=== PATIENT | female | born 1950 | race Caucasian/White ===

== ENCOUNTER 2017-03-16 07:48 | Day surgery (SDC) | payer MEDICARE, MEDICAID ==
[~2017-03-16] VITALS: Ht 154.9 cm; Wt 87.6 kg
[~2017-03-16 07:48] MED LIST: ATOR80TA PO; BENA40TA2 PO; BUPIVACAINE/PF 0.5% ONE; CARB100T4 PO; DICL1ADH15 TD; GABA600T PO; HYDR-3245 PO; HYDR25TA6 PO; LEVO25TA4 PO; LIDO700A5 TD; OXYC-302 PO; PANT40TA5 PO; PRAM0.5T5 PO; SERT100T5 PO; TIZA4TAB PO; TRAM50TA2 PO
[2017-03-16] MEDS ORDERED: LACTATED RINGERS 1,000 ML IV SCH (08:32)
[2017-03-16] MEDS ORDERED: MIDAZOLAM 1 MG/ML, 2ML ONE (08:53)
[2017-03-16] MEDS ORDERED: FENTANYL PF 100 MCG/2ML ONE ×2 (08:53→10:02)
[2017-03-16] MEDS ORDERED: EPINEPHRINE 1 MG/ML, 1ML ONE (09:07)
[2017-03-16] MEDS ORDERED: BUPIVACAINE/PF 0.5% ONE (09:07)
[2017-03-16] MEDS ORDERED: LIDOCAINE/PF 1%, 30ML ONE (09:07)
[2017-03-16 09:10] VITALS: BP 130/80
[2017-03-16] MEDS ORDERED: PRAM0.5T PO (09:21)
[2017-03-16] MEDS ORDERED: RIVA20TA PO (09:21)
[2017-03-16] MEDS ORDERED: ROSU40TA PO (09:21)
[2017-03-16] MEDS ORDERED: DEXAMETHASONE 4 MG/ML, 5ML ONE (09:23)
[2017-03-16] MEDS ORDERED: hydrALAzine 20 MG/ML, 1ML ONE (09:23)
[2017-03-16] MEDS ORDERED: CEFAZOLIN 1,000 MG ONE (09:23)
[2017-03-16] MEDS ORDERED: ONDANSETRON 2MG/ML, 2ML ONE (09:23)
[2017-03-16] MEDS ORDERED: SUCCINYLCHOLINE 20 MG/ML, 10ML ONE (09:23)
[2017-03-16] MEDS ORDERED: EPHEDRINE 50 MG/ML, 1ML ONE (09:23)
[2017-03-16] MEDS ORDERED: PROPOFOL 10 MG/ML, 20ML ONE (09:23)
[2017-03-16] MEDS ORDERED: HYDROcodone/APAP 10/325 MG TABLET PO PRN (09:30)
[2017-03-16] MEDS ORDERED: OXYcodone 5 MG/5 ML ORAL.SOL UDC PO PRN (10:30)
[2017-03-16] MEDS ORDERED: ACETAMINOPHEN 325 MG TABLET PO PRN (10:30)
[2017-03-16] MEDS ORDERED: MEPERIDINE/PF 25MG/0.5ML IVPush PRN (10:30)
[2017-03-16] MEDS ORDERED: ONDANSETRON 2MG/ML, 2ML IVPush PRN (10:30)
[2017-03-16] MEDS ORDERED: LABETALOL 5MG/ML, 20ML IV PRN (10:30)
[2017-03-16] MEDS ORDERED: hydrALAzine 20 MG/ML, 1ML IV PRN (10:30)
[2017-03-16] MEDS ORDERED: HYDROmorphone 1 MG/ML, 1ML IV PRN (10:30)
[2017-03-16] MEDS ORDERED: ALBUTEROL/IPRATROPIUM 2.5MG/0.5MG, 3 ML NPPB PRN (10:30)
[2017-03-16] MEDS ORDERED: METOCLOPRAMIDE 5 MG/ML, 2ML IV PRN (10:30)
[2017-03-16] MEDS ORDERED: MIDAZOLAM 1 MG/ML, 2ML IV PRN (10:30)
[2017-03-16] MEDS ORDERED: FENTANYL PF 100 MCG/2ML IV PRN (10:30)
[2017-03-16] MEDS ORDERED: PROMETHAZINE 25 MG/ML, 1ML IV PRN (10:30)
[2017-03-16] MEDS ORDERED: OXYcodone 5 MG/5 ML ORAL.SOL UDC ONE (11:32)
[2017-03-16] MEDS ORDERED: ACETAMINOPHEN 650 MG/20.3 ML UDC ONE (11:32)
[2017-03-16] MEDS ORDERED: CARBAMAZEPINE 100 MG TAB.CHEW PO SCH (16:00)
[2017-03-16] MEDS ORDERED: TIZANIDINE 4MG TABLET PO SCH (16:00)
[2017-03-16] MEDS ORDERED: SERTRALINE 100MG TABLET PO SCH (21:00)
[2017-03-17] MEDS ORDERED: PANTOPROZOLE 40MG TABLET PO SCH (09:00)
[2017-03-17] MEDS ORDERED: ATORVASTATIN 80 MG TABLET PO SCH (09:00)
[2017-03-17] MEDS ORDERED: HYDROCHLOROTHIAZIDE 25 MG TABLET PO SCH (09:00)
[2017-03-17] MEDS ORDERED: PRAMIPEXOLE 0.5MG TABLET PO SCH (09:00)
[2017-03-17] MEDS ORDERED: LEVOTHYROXINE 25 MCG TABLET PO SCH (09:00)
== END 2017-03-16 13:10 ==
LOC: OUT 07:48
PROVIDERS: ATTEND Orthopaedic Surgery
DX: M75.111 Incomplete rotator cuff tear or rupture of right shoulder, not specified as traumatic (principal); S43.431A Superior glenoid labrum lesion of right shoulder, initial encounter; M19.011 Primary osteoarthritis, right shoulder; M65.811 Other synovitis and tenosynovitis, right shoulder; M75.41 Impingement syndrome of right shoulder; M94.211 Chondromalacia, right shoulder; I10 Essential (primary) hypertension; E78.5 Hyperlipidemia, unspecified; K21.9 Gastro-esophageal reflux disease without esophagitis; X58.XXXA Exposure to other specified factors, initial encounter; Y93.89 Activity, other specified; Y92.89 Other specified places as the place of occurrence of the external cause; Y99.8 Other external cause status; Z88.1 Allergy status to other antibiotic agents; Z88.8 Allergy status to other drugs, medicaments and biological substances
CPT/HCPCS: 29822; 29826; 29827; 29999; J0171; J0330; J0360; J0690; J1100; J2250; J2405; J2704; J3010; J3490; J7120